=== PATIENT | female | born 1940 | race Caucasian/White ===

== ENCOUNTER 2022-04-11 08:52 | Outpatient (CLI) | payer MEDICARE, SELFPAY | END 2022-04-11 08:53 | disposition home or self-care (01) | LOC: AMB 22:48 | PROVIDERS: Visit Provider Family Medicine | DX: R41.82 Altered mental status, unspecified (principal) | CPT/HCPCS: A0425; A0427 ==

== ENCOUNTER 2022-04-26 13:45 | Outpatient (CLI) | payer MEDICARE, SELFPAY | END 2022-04-26 13:46 | disposition home or self-care (01) | LOC: AMB 05-07 11:43 | PROVIDERS: Visit Provider Family Medicine | DX: R04.0 Epistaxis (principal); R06.09 Other forms of dyspnea | CPT/HCPCS: A0425; A0429 ==

== ENCOUNTER 2022-05-14 21:28 | Outpatient (CLI) | payer MEDICARE, SELFPAY | END 2022-05-14 21:29 | disposition home or self-care (01) | LOC: AMB 05-16 06:12 | PROVIDERS: Visit Provider Emergency Medicine | DX: R07.89 Other chest pain (principal) | CPT/HCPCS: A0425; A0427 ==

== ENCOUNTER 2022-05-20 18:49 | Outpatient (CLI) | payer MEDICARE, SELFPAY | END 2022-05-20 18:50 | disposition home or self-care (01) | PROVIDERS: Visit Provider Emergency Medicine | DX: R53.83 Other fatigue (principal) | CPT/HCPCS: A0425; A0427 ==

== ENCOUNTER 2022-06-03 16:33 | Outpatient (CLI) | payer MEDICARE, SELFPAY | END 2022-06-03 16:34 | disposition home or self-care (01) | LOC: AMB 06-11 11:38 | PROVIDERS: Visit Provider Family Medicine | DX: R11.2 Nausea with vomiting, unspecified (principal) | CPT/HCPCS: A0425; A0427 ==

== ENCOUNTER 2022-07-08 14:35 | Outpatient (CLI) | payer MEDICARE, SELFPAY | END 2022-07-08 14:36 | disposition home or self-care (01) | LOC: AMB 07-18 08:19 | PROVIDERS: Visit Provider Family Medicine | DX: R26.89 Other abnormalities of gait and mobility (principal); R53.1 Weakness | CPT/HCPCS: A0425; A0429 ==

== ENCOUNTER 2022-07-26 17:56 | Outpatient (CLI) | payer MEDICARE, SELFPAY | END 2022-07-26 17:57 | disposition home or self-care (01) | LOC: AMB 08-01 10:33 | PROVIDERS: Visit Provider Family Medicine | DX: R04.0 Epistaxis (principal) | CPT/HCPCS: A0425; A0429 ==